=== PATIENT | female | born 1975 | race Caucasian/White ===

== ENCOUNTER 2017-04-20 15:00 | Outpatient (RCR) | payer OTHER | END 2017-05-03 | disposition home or self-care (01) | LOC: PT | DX: M25.551 Pain in right hip (principal) ==

== ENCOUNTER → 2017-12-20 | Outpatient (CLI) | payer OTHER | LOC: RAD 10:15 | DX: M54.5 Low back pain (principal); M25.552 Pain in left hip; M25.551 Pain in right hip ==

== ENCOUNTER → 2018-04-18 | Outpatient (CLI) | payer OTHER | LOC: MAMMO 09:46 | DX: Z12.31 Encounter for screening mammogram for malignant neoplasm of breast (principal) ==

== ENCOUNTER → 2018-05-07 | Outpatient (CLI) | payer OTHER | LOC: MAMMO 05-06 10:59 | DX: N60.11 Diffuse cystic mastopathy of right breast (principal) ==

== ENCOUNTER → 2020-07-01 | Outpatient (CLI) | payer OTHER | LOC: MAMMO 15:52 | DX: Z12.31 Encounter for screening mammogram for malignant neoplasm of breast (principal) ==

== ENCOUNTER → 2021-09-08 | Outpatient (CLI) | payer OTHER | LOC: MAMMO 14:30 | DX: Z12.31 Encounter for screening mammogram for malignant neoplasm of breast (principal) ==

== ENCOUNTER → 2022-09-21 | Outpatient (CLI) | payer OTHER | LOC: MAMMO 15:05 | DX: Z12.31 Encounter for screening mammogram for malignant neoplasm of breast (principal) ==

== ENCOUNTER → 2023-09-08 | Outpatient (CLI) | payer OTHER | LOC: AMSURD 10:18 | DX: Z12.31 Encounter for screening mammogram for malignant neoplasm of breast (principal); R00.8 Other abnormalities of heart beat ==